=== PATIENT | female | born 1935 | race Caucasian/White ===

== ENCOUNTER 2016-11-12 10:26 | Observation (INO) | payer OTHER ==
[2016-11-12] MEDS ORDERED: ASPIRIN 81 MG CHEWABLE TAB PO ONE (10:59)
--- NOTE | 2016-11-12 11:03 | EDPHY ---
H & P Stated Complaint: SOB, Weakness Time Seen by Provider: 11/12/16 10:38 HPI/ROS: CHIEF COMPLAINT: Generalized weakness HISTORY OF PRESENT ILLNESS: Patient is an 80-year-old female a history of CHF and pacemaker and hypothyroidism who comes to the emergency department complaining of generalized weakness for the last 2 weeks. She states that this has been gradually worsening. She also has mild shortness of breath that is worse when she lies flat. She states that she has had some weight gain but no peripheral edema. She states that she does not usually get peripheral edema. She is on Lasix 20 mg each day and has not changed recently. She denies any focal weakness, numbness or deficits. She states that she feels weak particularly when she stands up. she is typically seen a [place] and her park keeper is Dr. Thurston. REVIEW OF SYSTEMS: Constitutional: denies: chills, fever, recent illness, recent injury EENTM: denies: blurred vision, double vision, nose congestion Respiratory: See HPI Cardiac: denies: chest pain, irregular heart rate, lightheadedness, palpitations Gastrointestinal/Abdominal: denies: abdominal pain, diarrhea, nausea, vomiting, blood streaked stools Genitourinary: denies: dysuria, frequency, hematuria, pain Musculoskeletal: denies: joint pain, muscle pain Skin: denies: lesions, rash, jaundice, bruising Neurological: denies: headache, numbness, paresthesia, tingling, dizziness, weakness Hematologic/Lymphatic: denies: blood clots, easy bleeding, easy bruising Immunologic/allergic: denies: HIV/AIDS, transplant EXAM: GENERAL: Well-appearing, well-nourished and in no acute distress. HEAD: Atraumatic, normocephalic. EYES: Pupils equal round and reactive to light, extraocular movements intact, sclera anicteric, conjunctiva are normal. ENT: TMs normal, nares patent, oropharynx clear without exudates. Moist mucous membranes. NECK: Normal range of motion, supple without lymphadenopathy or JVD. LUNGS: Mild lower lobe rhonchi and crackles HEART: Regular rate and rhythm without murmurs, rubs or gallops. ABDOMEN: Soft, nontender, normoactive bowel sounds. No guarding, no rebound. No masses appreciated. BACK: No CVA tenderness, no spinal tenderness, step-offs or deformities EXTREMITIES: Normal range of motion, no pitting or edema. No clubbing or cyanosis. NEUROLOGICAL: Cranial nerves II through XII grossly intact. Normal speech, normal gait. 5/5 strength, normal movement in all extremities, normal sensation PSYCH: Normal mood, normal affect. SKIN: Warm, dry, normal turgor, no visible rashes or lesions. Source: Patient Exam Limitations: No limitations - Personal History Current Tetanus/Diphtheria Vaccine: Yes Current Tetanus Diphtheria and Acellular Pertussis (TDAP): Yes - Medical/Surgical History Hx Asthma: No Hx Chronic Respiratory Disease: No Hx Diabetes: No Hx Cardiac Disease: Yes Hx Renal Disease: No Hx Cirrhosis: No Hx Alcoholism: No Hx HIV/AIDS: No Hx Splenectomy or Spleen Trauma: No Other PMH: PMH: CHF, Pacemaker, - Social History Smoking Status: Never smoked Alcohol Use: None Drug Use: None Constitutional: Initial Vital Signs Temperature (C) 36.8 C 11/12/16 10:40 Heart Rate 69 11/12/16 10:40 Respiratory Rate 18 11/12/16 10:40 Blood Pressure 148/90 H 11/12/16 10:40 O2 Sat (%) 91 L 11/12/16 10:40 O2 Delivery Mode Room Air Allergies/Adverse Reactions: No Known Allergies Allergy (Unverified 11/12/16 10:44) Home Medications: Medication Instructions Recorded Aspirin EC [Aspirin EC 81 mg (*)] 81 mg PO HS 11/12/16 Escitalopram Oxalate [Lexapro] 20 mg PO DAILY 11/12/16 Levothyroxine [Synthroid 125 mcg 125 mcg PO DAILY06 11/12/16 (*)] Losartan Potassium [Cozaar 50 mg 50 mg PO HS 11/12/16 (*)] Metoprolol Succinate Xr [Toprol Xl 100 mg PO HS 11/12/16 100 mg (*)] [place]-3 Fatty Acids [Fish Oil 1000 1,000 mg PO DAILY 11/12/16 mg (*)] Oxybutynin Chloride Xl [Ditropan 10 mg PO DAILY 11/12/16 Xl 5mg (*)] Potassium Cl [Klor-Con 10 meq (RX)] 10 meq PO DAILY 11/12/16 Pravastatin Sodium 20 mg PO DAILY 11/12/16 Furosemide [Lasix 40 MG (*)] 40 mg PO BIDDIUR #60 tab 04/19/17 Medical Decision Making - Diagnostics EKG Interpretation: An EKG obtained and was read and documented in trace view. Please see trace view for full reading and report. Ventricular paced rhythm, no acute ischemic changes ED Course/Re-evaluation: Patient tells me now that she has had 5 lb weight gain. Her daughter states that she is having trouble with memory and thinks she may need some help with this as well. She is generally fatigued and weak and not caring for herself at home. Save she will require admission for treatment and evaluation and possibly rehabilitation. 12:12 p.m. I discussed the case with Tika who will admit to Dr. Askew. Differential Diagnosis: Partial list of the Differential diagnosis considered include but were not limited to; CHF exacerbation, electrolyte abnormality, infection and although unlikely based on the history and physical exam, I also considered acute coronary disease, arrhythmia, CVA. Critical Care Time: Critical care time spent by me, Dr. Benedict exclusive with this patient was 35 minutes, exclusive of the PA time exclusive of procedures. The organ system that was at risk was cardiovascular and I gave diuretics, consultation and admission to prevent worsening of the patient's condition - Data Points Laboratory Results: Laboratory Results 11/12/16 11:04 11/12/16 11:04 Medications Given: Discontinued Medications Aspirin (Aspirin) 324 mg PO EDNOW ONE Stop: 11/12/16 11:00 Last Admin: 11/12/16 11:24 Dose: 324 mg Aspirin Buffered (Aspirin Ec) 81 mg PO HS DREW Stop: 05/11/17 20:59 Last Admin: 11/12/16 20:21 Dose: 81 mg Enoxaparin Sodium (Lovenox) 40 mg SC DAILY DREW Stop: 05/12/17 08:59 Last Admin: 11/13/16 08:15 Dose: 40 mg Escitalopram Oxalate (Lexapro) 20 mg PO DAILY DREW Stop: 05/12/17 08:59 Last Admin: 11/13/16 08:14 Dose: 20 mg Furosemide (Lasix Injection) 40 mg IVP EDNOW ONE Stop: 11/12/16 12:09 Last Admin: 11/12/16 12:44 Dose: 40 mg Furosemide (Lasix Injection) 40 mg IVP ONCE ONE Stop: 11/12/16 18:01 Last Admin: 11/12/16 19:20 Dose: 40 mg Furosemide (Lasix Injection) 40 mg IVP DAILY DREW Stop: 05/12/17 08:59 Last Admin: 11/13/16 08:12 Dose: 40 mg Levothyroxine Sodium (Synthroid) 125 mcg PO DAILY06 DREW Stop: 05/12/17 05:59 Last Admin: 11/13/16 05:50 Dose: 125 mcg Metoprolol Succinate (Toprol Xl) 100 mg PO HS DREW Stop: 05/11/17 20:59 Last Admin: 11/12/16 20:21 Dose: 100 mg [id number] Ethyl Esters (Fish Oil) 1,000 mg PO DAILY DREW Stop: 05/12/17 08:59 Last Admin: 11/13/16 08:13 Dose: 1,000 mg Oxybutynin Chloride (Ditropan Xl) 10 mg PO DAILY DREW Stop: 05/12/17 08:59 Last Admin: 11/13/16 08:13 Dose: 10 mg Potassium Chloride (Klor-Con) 10 meq PO DAILY DREW Stop: 05/12/17 08:59 Last Admin: 11/13/16 08:14 Dose: 10 meq Pravastatin Sodium (Pravachol) 20 mg PO DAILY DREW Stop: 05/12/17 08:59 Last Admin: 11/13/16 08:13 Dose: 20 mg Sertraline HCl (Zoloft) 75 mg PO DAILY DREW Stop: 05/12/17 08:59 Last Admin: 11/13/16 08:19 Dose: Not Given Departure - Departure Disposition: Home, Routine, Self-Care Clinical Impression: CHF exacerbation Qualifiers: Congestive heart failure type: diastolic Qualified Code(s): I50.33 - Acute on chronic diastolic (congestive) heart failure Condition: Good
[2016-11-12 11:16] LABS: % IMMATURE GRANULYOCYTES 0.4 % (0.0-1.1); ABSOLUTE IMMATURE GRANULOCYTES 0.04 10^3/uL (0.00-0.10); ADD DIFF? NO; ADD MORPH? NO; ADD SCAN? NO; ATYPICAL LYMPHOCYTE FLAG 10 (0-99); FRAGMENT RBC FLAG 0 (0-99); HEMATOCRIT 41.9 % (38.0-47.0); HEMOGLOBIN 13.7 g/dL (12.6-16.3); LEFT SHIFT FLG 10 (0-99); LIPEMIA HEMOLYSIS FLAG 80 (0-99); MEAN CELL HEMOGLOBIN 31.6 pg (27.9-34.1); MEAN CELL HEMOGLOBIN CONCENTR. 32.7 g/dL (32.4-36.7); MEAN CELL VOLUME 96.8 fL (81.5-99.8); MEAN PLATELET VOLUME 10.1 fL (8.7-11.7); PLATELET CLUMPS FLAG 20 (0-99); PLATELET COUNT 240 10^3/uL (150-400); RED BLOOD CELL COUNT 4.33 10^6/uL (4.18-5.33); RED CELL DISTRIBUTION WIDTH 14.6 % (11.5-15.2)
--- NOTE | 2016-11-12 11:20 | CPEKG ---
Heart Rate: 77 RR Interval: 779 P-R Interval: 112 QRSD Interval: 138 QT Interval: 476 QTC Interval: 539 P [place]: 0 QRS [place]: -7 T Wave [place]: -80 EKG Severity - ABNORMAL ECG - EKG Impression: ATRIAL-SENSED VENTRICULAR-PACED COMPLEXES EKG Impression: LEFT BUNDLE BRANCH BLOCK Electronically Signed By: Gonzalo Benedict 12-Nov-2016 11:27:20
[2016-11-12 11:22] LABS: ALANINE AMINOTRANSFERASE 106 IU/L (9-52); ALBUMIN 4.3 g/dL (3.5-5.0); ALKALINE PHOSPHATASE 88 IU/L (38-126); ANION GAP 14 mEq/L (8-16); ASPARTATE AMINOTRANSFERASE 77 IU/L (14-46); BILIRUBIN,TOTAL 0.7 mg/dL (0.1-1.4); BILIRUBIN-CONJUGATED 0.3 mg/dL (0.0-0.5); BILIRUBIN-UNCONJUGATED 0.4 mg/dL (0.0-1.1); CALCIUM 9.4 mg/dL (8.5-10.4); CARBON DIOXIDE 24 mEq/l (22-31); CHLORIDE 103 mEq/L (97-110); CREATININE 1.1 mg/dL (0.6-1.0); GLOMERULAR FILTRATION RATE 48; GLUCOSE 89 mg/dL (70-100); POTASSIUM 4.7 mEq/L (3.5-5.2); SODIUM 141 mEq/L (134-144); TOTAL PROTEIN 7.4 g/dL (6.3-8.2)
[2016-11-12 11:27] LABS: INR 1.14 (0.83-1.16); PROTIME(PATIENT) 14.5 SEC (12.0-15.0)
[2016-11-12 11:28] LABS: APTT 29.4 SEC (23.0-38.0)
[2016-11-12 11:33] LABS: TROPONIN I < 0.012 ng/mL (0-0.034)
[2016-11-12] MEDS ORDERED: FUROSEMIDE 40 MG/4 ML VIAL IVP ONE ×2 (12:08→18:00)
[2016-11-12] MEDS ORDERED: ACETAMINOPHEN 325 MG TAB PO PRN (13:44)
[2016-11-12] MEDS ORDERED: ONDANSETRON 4 MG/2 ML VIAL IVP PRN (13:44)
[2016-11-12] MEDS ORDERED: ONDANSETRON DISINTEGRATING 4 MG TAB PO PRN (13:44)
--- NOTE | 2016-11-12 13:51 | PDGENHP ---
History and Physical - Chief Complaint Acute weakness - History of Present Illness Primary care provider: Dr. Long Primary top dyeing machine loader: Dr. Thurston HPI: 80-year-old female presenting with acute weakness characterized as generalized, associated shortness of breath exacerbated by lying supine or by standing and exerting herself, as well as 5 lb weight gain. Onset of symptoms approximately 2 weeks ago and duration has been persistent worsening thereafter. Patient reports that she has not been particularly adherence to a low-sodium diet and she denies any recent changes in any of her medications. She has been adherent to taking Lasix 20 mg once daily but has not recently increased despite previous advice from her top dyeing machine loader to do so. The patient contacted her primary cardiology office on the day of this presentation, and they recommended that she seek attention in the emergency department. The patient otherwise denies any infectious symptoms but does endorse oliguria. History Information - Allergies/Home Medication List Allergies/Adverse Reactions: No Known Allergies Allergy (Unverified 11/12/16 10:44) Home Medications: Aspirin EC [Aspirin EC 81 mg (*)] 81 mg PO HS 11/12/16 [Last Taken 11/11/16] Escitalopram Oxalate [Lexapro] 20 mg PO DAILY 11/12/16 [Last Taken 11/12/16] Furosemide [Lasix 20 MG (*)] 20 mg PO DAILY 11/12/16 [Last Taken 11/12/16] Furosemide [Lasix 20 MG (*)] 20 mg PO DAILY@18 PRN 11/12/16 [Last Taken Unknown] Levothyroxine [Synthroid 125 mcg (*)] 125 mcg PO DAILY06 11/12/16 [Last Taken ] Losartan Potassium [Cozaar 50 mg (*)] 50 mg PO HS 11/12/16 [Last Taken 11/11/16] Metoprolol Succinate Xr [Toprol Xl 100 mg (*)] 100 mg PO HS 11/12/16 [Last Taken 11/11/16] [place]-3 Fatty Acids [Fish Oil 1000 mg (*)] 1,000 mg PO DAILY 11/12/16 [Last Taken 11/12/16] Oxybutynin Chloride Xl [Ditropan Xl 5mg (*)] 10 mg PO DAILY 11/12/16 [Last Taken 11/12/16] Potassium Cl [Klor-Con] 10 meq PO DAILY 11/12/16 [Last Taken 11/12/16] Pravastatin Sodium 20 mg PO DAILY 11/12/16 [Last Taken 11/12/16] Sertraline HCl [Zoloft 50mg (*)] 75 mg PO DAILY 11/12/16 [Last Taken 11/12/16] I have personally reviewed and updated: family history, medical history, social history, surgical history - Past Medical History atrial fibrillation Additional medical history: Hypothyroidism. Congestive heart failure, unknown type, most recent echocardiogram 3 months ago - Surgical History Reports: pacemaker/AICD (Permanent pacemaker, last revision 2 years ago) - Family History Additional family history: Significant 1st degree history of heart failure and cardiomyopathy issues with 7 first-degree relatives experiencing this issue - Social History Smoking Status: Never smoked Alcohol Use: None Drug Use: None Additional social history: Independent in her ADLs, the patient's daughter is very concerned about patient's ability to actually care for herself at home Review of Systems ROS: 10pt was reviewed & negative except for what was stated in HPI & below Constitutional: Reports: weakness, other (Weight gain) Respiratory: Reports: shortness of breath Physical Exam Temp Pulse Resp BP Pulse Ox 36.8 C 77 16 120/88 H 93 11/12/16 10:40 11/12/16 12:04 11/12/16 12:04 11/12/16 12:04 11/12/16 12:04 Constitutional: no apparent distress, appears nourished, not in pain, obese Eyes: PERRL, anicteric sclera, EOMI Ears, Nose, Mouth, Throat: moist mucous membranes, hearing normal, ears appear normal, no oral mucosal ulcers Cardiovascular: regular rate and rhythym, systolic murmur, JVD, No irregularly irregular, No edema Respiratory: inspiratory crackles, No reduced air movement, No expiratory wheeze , No bronchial breath sounds, No respiratory distress Gastrointestinal: normoactive bowel sounds, soft, non-tender abdomen, no palpable masses Genitourinary: no bladder fullness, no bladder tenderness Neurologic: AAOx3, sensation intact bilaterally, No weakness (Motor strength 5/ 5 bilateral upper and lower extremities), No facial droop Psychiatric: interacting appropriately, not anxious, not encephalopathic, thought process linear Lab Data & Imaging Review 11/12/16 11:04 11/12/16 11:04 WBC 9.14 10^3/uL (3.80-9.50) 11/12/16 11:04 RBC 4.33 10^6/uL (4.18-5.33) 11/12/16 11:04 Hgb 13.7 g/dL (12.6-16.3) 11/12/16 11:04 Hct 41.9 % (38.0-47.0) 11/12/16 11:04 MCV 96.8 fL (81.5-99.8) 11/12/16 11:04 MCH 31.6 pg (27.9-34.1) 11/12/16 11:04 MCHC 32.7 g/dL (32.4-36.7) 11/12/16 11:04 RDW 14.6 % (11.5-15.2) 11/12/16 11:04 Plt Count 240 10^3/uL (150-400) 11/12/16 11:04 MPV 10.1 fL (8.7-11.7) 11/12/16 11:04 Neut % (Auto) 70.0 % (39.3-74.2) 11/12/16 11:04 Lymph % (Auto) 21.1 % (15.0-45.0) 11/12/16 11:04 [place] % (Auto) 7.3 % (4.5-13.0) 11/12/16 11:04 Eos % (Auto) 1.0 % (0.6-7.6) 11/12/16 11:04 Baso % (Auto) 0.2 % (0.3-1.7) L 11/12/16 11:04 Nucleat RBC Rel Count 0.0 % (0.0-0.2) 11/12/16 11:04 Absolute Neuts (auto) 6.39 10^3/uL (1.70-6.50) 11/12/16 11:04 Absolute Lymphs (auto) 1.93 10^3/uL (1.00-3.00) 11/12/16 11:04 Absolute Monos (auto) 0.67 10^3/uL (0.30-0.80) 11/12/16 11:04 Absolute Eos (auto) 0.09 10^3/uL (0.03-0.40) 11/12/16 11:04 Absolute Basos (auto) 0.02 10^3/uL (0.02-0.10) 11/12/16 11:04 Absolute Nucleated RBC 0.00 10^3/uL (0-0.01) 11/12/16 11:04 Immature Gran % 0.4 % (0.0-1.1) 11/12/16 11:04 Immature Gran # 0.04 10^3/uL (0.00-0.10) 11/12/16 11:04 PT 14.5 SEC (12.0-15.0) 11/12/16 11:04 INR 1.14 (0.83-1.16) 11/12/16 11:04 APTT 29.4 SEC (23.0-38.0) 11/12/16 11:04 Sodium 141 mEq/L (134-144) 11/12/16 11:04 Potassium 4.7 mEq/L (3.5-5.2) 11/12/16 11:04 Chloride 103 mEq/L (97-110) 11/12/16 11:04 Carbon Dioxide 24 mEq/l (22-31) 11/12/16 11:04 Anion Gap 14 mEq/L (8-16) 11/12/16 11:04 BUN 20 mg/dL (7-23) 11/12/16 11:04 Creatinine 1.1 mg/dL (0.6-1.0) H 11/12/16 11:04 Estimated GFR 48 11/12/16 11:04 Glucose 89 mg/dL (70-100) 11/12/16 11:04 Calcium 9.4 mg/dL (8.5-10.4) 11/12/16 11:04 Total Bilirubin 0.7 mg/dL (0.1-1.4) 11/12/16 11:04 Conjugated Bilirubin 0.3 mg/dL (0.0-0.5) 11/12/16 11:04 Unconjugated Bilirubin 0.4 mg/dL (0.0-1.1) 11/12/16 11:04 AST 77 IU/L (14-46) H 11/12/16 11:04 ALT 106 IU/L (9-52) H 11/12/16 11:04 Alkaline Phosphatase 88 IU/L (38-126) 11/12/16 11:04 Troponin I < 0.012 ng/mL (0-0.034) 11/12/16 11:04 NT-Pro-B Natriuret Pep 3340 pg/mL (0-450) H 11/12/16 11:04 Total Protein 7.4 g/dL (6.3-8.2) 11/12/16 11:04 Albumin 4.3 g/dL (3.5-5.0) 11/12/16 11:04 Free T4 1.95 ng/dL (0.59-2.19) 11/12/16 11:04 Visualized and Interpreted Chest x-ray results: Yes Chest X-Ray results: other (Pulmonary edema and interstitial infiltrates without focal consolidation) Visualized and Interpreted EKG results: Yes EKG Interpretation: Positive for: other (A sensed, V paced) Assessment & Plan Assessment: 80-year-old female presents with acute CHF exacerbation Plan: 1. CHF exacerbation. Acute, new problem this provider, further workup indicated. Evidenced by interstitial markings on chest x-ray plus BNP of 3 1000 + reported history of 5 lb weight gain, most likely secondary to dietary indiscretion and no recent up titration of her diuretic dosing. -patient does not remember what her ejection fraction is, will order outside records from Dr. Thurston office to determine her most recent ejection fraction, as well as most recent cardiac catheterization results -status post IV Lasix emergency department, currently urinating well, repeat dose 40 mg of IV Lasix at 6:00 p.m. and then again tomorrow morning -the patient is not overtly hypoxic as she is satting 93% on room air, but she appears to be breathing heavily after minimal exertion and she is highly symptomatic from her volume overload at the moment -TSH pending -will defer further coronary artery disease risk stratification pending no developments of chest pain -continue home medications, hold ARB while we are actively diuresing 2. Transaminitis. Most likely secondary to stab so hepatitis as well as possibly passive hepatic congestion, repeat level in a.m. and compare with outpatient labs from 3 months ago Diet. Cardiac Prophylaxis. High risk patient, Lovenox 40 Code. Full Disposition. Anticipated discharge is 11/13, pending further workup and factual treatment of above. If the patient becomes hypoxic or she is unable to complete ADLs, then she may require upgraded to inpatient admission status tomorrow. I discussed the patient with Tika Bustamante, hospitalist, she has signed out the patient to me for admission in the PCU.
[2016-11-12 14:34] LABS: COLOR PALE YELLOW; LEUKOCYTE ESTERASE,URINE 1+ (NEGATIVE); NITRITE,URINE NEGATIVE (NEGATIVE)
[2016-11-12 14:44] LABS: BACTERIA NONE SEEN /hpf (NONE SEEN); MUCUS NONE SEEN /lpf (NONE-1+)
[2016-11-12] MEDS ORDERED: METOPROLOL SUCCINATE XR 100 MG TAB PO SCH (21:00)
[2016-11-12] MEDS ORDERED: ASPIRIN EC 81 MG TAB PO SCH (21:00)
[2016-11-13 05:31] LABS: % IMMATURE GRANULYOCYTES 0.4 % (0.0-1.1); ABSOLUTE IMMATURE GRANULOCYTES 0.03 10^3/uL (0.00-0.10); ADD DIFF? NO; ADD MORPH? NO; ADD SCAN? NO; ATYPICAL LYMPHOCYTE FLAG 0 (0-99); FRAGMENT RBC FLAG 0 (0-99); HEMATOCRIT 37.4 % (38.0-47.0); HEMOGLOBIN 12.4 g/dL (12.6-16.3); LEFT SHIFT FLG 20 (0-99); LIPEMIA HEMOLYSIS FLAG 80 (0-99); MEAN CELL HEMOGLOBIN 32.1 pg (27.9-34.1); MEAN CELL HEMOGLOBIN CONCENTR. 33.2 g/dL (32.4-36.7); MEAN CELL VOLUME 96.9 fL (81.5-99.8); MEAN PLATELET VOLUME 10.3 fL (8.7-11.7); PLATELET CLUMPS FLAG 0 (0-99); PLATELET COUNT 202 10^3/uL (150-400); RED BLOOD CELL COUNT 3.86 10^6/uL (4.18-5.33); RED CELL DISTRIBUTION WIDTH 14.5 % (11.5-15.2)
[2016-11-13 05:35] LABS: ALANINE AMINOTRANSFERASE 83 IU/L (9-52); ALBUMIN 3.6 g/dL (3.5-5.0); ALKALINE PHOSPHATASE 78 IU/L (38-126); ANION GAP 12 mEq/L (8-16); ASPARTATE AMINOTRANSFERASE 50 IU/L (14-46); BILIRUBIN,TOTAL 0.9 mg/dL (0.1-1.4); CALCIUM 9.1 mg/dL (8.5-10.4); CARBON DIOXIDE 26 mEq/l (22-31); CHLORIDE 104 mEq/L (97-110); CREATININE 1.1 mg/dL (0.6-1.0); GLOMERULAR FILTRATION RATE 48; GLUCOSE 81 mg/dL (70-100); MAGNESIUM 1.9 mg/dL (1.6-2.3); POTASSIUM 4.1 mEq/L (3.5-5.2); SODIUM 142 mEq/L (134-144); TOTAL PROTEIN 6.1 g/dL (6.3-8.2)
[2016-11-13] MEDS ORDERED: LEVOTHYROXINE 125 MCG TAB PO SCH (06:00)
[2016-11-13 07:32] VITALS: RESP 16; TEMP 97.6; O2SAT 93
[2016-11-13 08:52] VITALS: BP 109/63; PULSE 76
[2016-11-13] MEDS ORDERED: OXYBUTYNIN 5 MG EXT REL TAB PO SCH (09:00)
[2016-11-13] MEDS ORDERED: ENOXAPARIN 40 MG/0.4 ML SYR SC SCH (09:00)
[2016-11-13] MEDS ORDERED: NON-FORMULARY NEW DRUG (Escitalopram Oxalate [Lexapro] 20 MG) PO SCH (09:00)
[2016-11-13] MEDS ORDERED: OMEGA-3 FATTY ACIDS 1,000 MG CAP PO SCH (09:00)
[2016-11-13] MEDS ORDERED: POTASSIUM CL 10 MEQ TAB PO SCH (09:00)
[2016-11-13] MEDS ORDERED: FUROSEMIDE 40 MG/4 ML VIAL IVP SCH (09:00)
[2016-11-13] MEDS ORDERED: SERTRALINE HCL 50 MG TAB PO SCH (09:00)
[2016-11-13] MEDS ORDERED: PRAVASTATIN SODIUM 20 MG TAB PO SCH (09:00)
[2016-11-13] MEDS ORDERED: ESCITALOPRAM OXALATE 10 MG TAB PO SCH (09:00)
--- NOTE | 2016-11-13 13:21 | PDIAF ---
- Diagnosis Diagnosis: Acute systolic CHF exacerbation Code Status: Full Code - Medication Management Discharge Medications: Medications to Continue on Transfer Aspirin EC [Aspirin EC 81 mg (*)] 81 mg PO HS 11/12/16 [Last Taken 11/11/16] Escitalopram Oxalate [Lexapro] 20 mg PO DAILY 11/12/16 [Last Taken 11/12/16] Levothyroxine [Synthroid 125 mcg (*)] 125 mcg PO DAILY06 11/12/16 [Last Taken ] Losartan Potassium [Cozaar 50 mg (*)] 50 mg PO HS 11/12/16 [Last Taken 11/11/16] Metoprolol Succinate Xr [Toprol Xl 100 mg (*)] 100 mg PO HS 11/12/16 [Last Taken 11/11/16] [place]-3 Fatty Acids [Fish Oil 1000 mg (*)] 1,000 mg PO DAILY 11/12/16 [Last Taken 11/12/16] Oxybutynin Chloride Xl [Ditropan Xl 5mg (*)] 10 mg PO DAILY 11/12/16 [Last Taken 11/12/16] Potassium Cl [Klor-Con 10 meq (RX)] 10 meq PO DAILY 11/12/16 [Last Taken ] Pravastatin Sodium 20 mg PO DAILY 11/12/16 [Last Taken 11/12/16] Furosemide [Lasix 40 MG (*)] 40 mg PO BIDDIUR #60 tab 11/13/16 [Last Taken Unknown] Communicable Disease Specialist Antibiotics: NA Discharge Medications: Refer to the Discharge Home Medication list for PRN reason. PICC Care - Routine: N/A - Orders Services needed: Home Care, Registered Nurse Home Care Face to Face: I certify that this patient was under my care and that I had the required [id number] encounter meeting the encounter requirements on the discharge day. My findings support the fact that the patient is homebound as defined in CMS Chapter 7 Medicare Benefits Manual 30.1.1, The condition of the patient is such that there exists a normal inability to leave home and consequently, leaving home would require a considerable and taxing effort. Oxygen: NA Diet Recommendation: cardiac -low fat low salt Weigh Patient: daily (keep daily log) [place]: Not applicable Activity/Weight Bearing Restrictions: as tolerated - Labs/Radiology BMP Date: 11/18/16 Call or Fax Lab and Imaging Results to: Dr. Cr Thurston - Follow Up Care Current Providers and Referrals: Patient,NotPresent [Unknown] - As per Instructions Cr Thurston MD [Retired Resigned] -
--- NOTE | 2016-11-13 15:19 | PDDCSUM ---
Discharge Summary Discharge Summary: DISCHARGE SUMMARY FOLLOW-UP ITEMS: Repeat creatinine BUN and lytes on 11/18 DATE OF ADMISSION: 11/12/16 DATE OF DISCHARGE: 11/13/16 DISCHARGE DIAGNOSES: 1. Acute systolic congestive heart failure exacerbation 2. Chronic kidney disease stage 3 3. Nonischemic cardiomyopathy CONSULTATIONS: None PROCEDURES / IMAGING: None CHIEF COMPLAINT: Acute shortness of breath SUBJECTIVE: Patient is feeling much improved at time of discharge, she reports she is able to ambulate without significant shortness of breath PHYSICAL EXAM ON DISCHARGE: Systolic blood pressure is 100, heart rate 70, afebrile overnight, satting well on room air, net -2 .1 L overnight, inspiratory crackles in the bilateral bases have improved LABS ON DISCHARGE: Creatinine 1.1, potassium 4.1, urinalysis normal HOSPITAL COURSE BY PROBLEM: 1. Acute systolic congestive heart failure exacerbation. Evidenced by BNP of 3300, chest x-ray demonstrating interstitial infiltrates, symptomatic shortness of breath, recent weight gain, most likely secondary to dietary indiscretions and too much oral fluid intake on a daily basis. I advised the patient that she should limit her fluid intake to approximately 2 L per day, as well as continue on increased dosage of oral Lasix until she sees her primary silk screen operator. She received 40 mg IV Lasix twice daily and lost approximately 7 lb of fluid weight. She will be discharged on 40 mg orally twice daily for the next 4 days and then will follow up with her primary silk screen operator. She also continue her other home medications as prescribed. I did review her outside records including most recent cardiology appointment which described her history of nonischemic cardiomyopathy and a previous ejection fraction of around 17%, most recently improved to 50-55% the use of appropriate medications. 2. Chronic kidney disease stage 3. Reviewed outside records including most recent labs, baseline creatinine is around 1.1, her creatinine remained stable during this hospitalization. Recommend outpatient follow-up labs in the setting of active diuresis with results to her primary silk screen operator. DISCHARGE MEDICATIONS: Please see official discharge medication reconciliation sheet in chart Lasix 40 mg twice daily, continue all other home medications. DISCHARGE INSTRUCTIONS: Please follow up with primary silk screen operator on 11/18 with results prior to that appointment. Home health care has also been arranged.
== END 2016-11-13 12:17 | disposition home health service (06) ==
LOC: EDUNIT# → F2W 13:22
PROVIDERS: ADMIT Internal Medicine; ATTEND Internal Medicine
DX: I50.21 Acute systolic (congestive) heart failure (principal); N18.3 Chronic kidney disease, stage 3 (moderate); I42.9 Cardiomyopathy, unspecified; Z95.0 Presence of cardiac pacemaker; E03.9 Hypothyroidism, unspecified
CPT/HCPCS: 71010; 93005; 96374; 97165; 99291; G8987; G8988; G8989; J1650

== ENCOUNTER 2017-10-02 13:10 | Emergency (ER) | payer OTHER ==
[2017-10-02 13:30] VITALS: RESP 18; TEMP 97.5
--- NOTE | 2017-10-02 14:31 | EDPHY ---
H & P Smoking Status: Never smoked <WilliamEnmanuel Beny - Last Filed: 10/02/17 14:51> <Gonzalo Benedict - Last Filed: 10/03/17 17:48> Time Seen by Provider: 10/02/17 14:31 HPI/ROS: Chief complaint. Fall HPI. 81-year-old female trip and fall just prior to arrival. She was coming out of her physician's office and there was a step-down that she did not see. She went forward and struck her head on the floor breaking her glasses. She did not lose consciousness but was days. She does also complain of some neck pain. She injured her right hand and left knee. She has been ambulatory. No chest discomfort or trouble breathing. No abdominal pain or back pain. Patient is on daily aspirin as blood thinner. ROS Constitutional. no fever/chills, no weakness Eyes. no problems with vision ENT. Contusion to right forehead Cardiovascular. no chest pain Respiratory. no shortness of breath, no cough Abdominal. no abdominal pain, no nausea/vomiting, no diarrhea . no problems urinating MS. Contusion right hand Skin. Abrasion left knee Lymph. no swollen glands Neuro. no headache, no dizziness, no difficulty walking or with speech (Enmanuel Thomas) Past Medical/Surgical History: Pacemaker, CHF (Enmanuel Thomas) Social History: , nonsmoker, no alcohol (Enmanuel Thomas) Physical Exam: General Appearance: Alert pleasant well-developed female mild distress vital signs stable Eyes: Pupils equal and round no pallor or injection. ENT, hematoma right forehead. No hemotympanum or Bah sign. No oral pharyngeal or dental trauma. Respiratory: There are no retractions, lungs are clear to auscultation. Cardiovascular: Regular rate and rhythm. Gastrointestinal: Abdomen is soft and nontender, no masses, bowel sounds normal. Neurological: Awake and alert, sensory and motor exams grossly normal. Skin: Warm and dry, no rashes. Musculoskeletal: Neck with diffuse neck discomfort. TLS spine is nontender Extremities right hand with some discomfort but no obvious swelling. Left knee with abrasion. Psychiatric: Patient is oriented X 3, there is no agitation. (Enmanuel Thomas) Constitutional: Initial Vital Signs Temperature (C) 36.4 C 03/08/18 13:27 Heart Rate 72 10/02/17 13:27 Respiratory Rate 18 10/02/17 13:27 Blood Pressure 120/68 10/02/17 13:27 O2 Sat (%) 95 10/02/17 13:27 O2 Delivery Mode Room Air Allergies/Adverse Reactions: No Known Allergies Allergy (Verified 10/02/17 13:26) Home Medications: Medication Instructions Recorded Aspirin EC [Aspirin EC 81 mg (*)] 81 mg PO HS 11/12/16 Escitalopram Oxalate [Lexapro] 20 mg PO DAILY 11/12/16 Levothyroxine [Synthroid 125 mcg 125 mcg PO DAILY06 11/12/16 (*)] Losartan Potassium [Cozaar 50 mg 50 mg PO HS 11/12/16 (*)] Metoprolol Succinate Xr [Toprol Xl 100 mg PO HS 11/12/16 100 mg (*)] [place]-3 Fatty Acids [Fish Oil 1000 1,000 mg PO DAILY 11/12/16 mg (*)] Oxybutynin Chloride Xl [Ditropan 10 mg PO DAILY 11/12/16 Xl 5mg (*)] Potassium Cl [Klor-Con 10 meq (RX)] 10 meq PO DAILY 11/12/16 Pravastatin Sodium 20 mg PO DAILY 11/12/16 Furosemide [Lasix 40 MG (*)] 40 mg PO BIDDIUR #60 tab 11/13/16 Medical Decision Making <Enmanuel Thomas - Last Filed: 10/02/17 14:51> - Diagnostics Imaging: Discussed imaging studies w/ letterer Radiologist <Gonzalo Benedict - Last Filed: 10/03/17 17:48> Procedures: Abrasions are cleaned (Enmanuel Thomas) ED Course/Re-evaluation: The 3:50 p.m. I spoke with the patient and her daughter. They are very much relieved with the CT results that there is no hydrocephalus or trauma. They will continue follow up with her doctor at [facility] for further workup for her memory issues. They declined further workup or treatment here in the ER. ( Gonzalo Benedict) Differential Diagnosis: Likely this is contusion. I have considered skull fracture as well as intracranial bleeding. Patient does not want x-rays of hand or knee. (Enmanuel Thomas) Care Turn Over: Care to Dr. Benedict at 3:00 p.m. For follow-up (Enmanuel Thomas) Departure <Enmanuel Thomas - Last Filed: 10/02/17 14:51> <Gonzalo Benedict - Last Filed: 10/03/17 17:48> - Departure Disposition: Home, Routine, Self-Care Clinical Impression: Hematoma and contusion Abrasion hand Qualifiers: Encounter type: initial encounter Laterality: right Qualified Code(s): S60.511A - Abrasion of right hand, initial encounter Condition: Fair Instructions: Abrasion (ED), Hematoma (ED) Referrals: Elke Valentino MD [Primary Care Provider] - 5-7 days, call for appt.
[2017-10-02 16:08] VITALS: BP 122/81; PULSE 70; O2SAT 93
== END 2017-10-02 16:08 | disposition home or self-care (01) ==
DX: S00.83XA Contusion of other part of head, initial encounter (principal); S60.511A Abrasion of right hand, initial encounter; I50.9 Heart failure, unspecified; Z79.82 Long term (current) use of aspirin; Z95.0 Presence of cardiac pacemaker; W01.198A Fall on same level from slipping, tripping and stumbling with subsequent striking against other object, initial encounter; Y92.89 Other specified places as the place of occurrence of the external cause